=== PATIENT | male | born 1940 | race Caucasian/White ===

== ENCOUNTER → 2023-03-14 | Outpatient (CLI) | payer MEDICARE, BC ==
[~2023-03-14] MED LIST: ALBUTEROL2.5 MG/3 M IH; ASPIRIN E.C. 8181 MG; ASPIRIN E.C. 8181 MG PO; ATIVAN0.5 MG PO; ATORVASTATIN CA80 MG PO; CLOPIDOGREL PO; COLACE100 M1 PEG; COLESTID 1GM1 G PO; CORDARONE200 MG/TAB PO; DEPO-TESTOS200 MG/M1 IM; DULCOLAX5 M1 PO; ELIQUIS2.5 MG PO; EXPECTORAN100 MG/51 PEG; FAMOTIDINE20 MG PO; FERROUS SU220 MG/53 PEG; INCRUSE EL62.5 MCG/A IH; ISMO 20MG20 MG; LIDODERM1 EACH TP; LOPERAMIDE1 MG/7.51 PEG; LOPRESSOR 225 MG/TAB PEG; MEGESTROL AC40 MG/ML PEG; MEGESTROL AC40 MG/ML PO; MEGESTROL ACETA20 M1 PO; MUPIROCIN2% TP; NITROGLYCERIN0.4 M1 SL; NYSTATIN 100MU/M1 ML PO; PACERONE200 MG PO; PROTONIX40 MG/Pack PEG; REGLAN5 M1 PEG; REMERON15 MG PO; SENNA8.6 M1 PO; TYLENOL EXTRA500 M2 PO; ULTRAM50 M1 PEG; ULTRAM50 M1 PO; VENELEX OINTMEN60 GM TP; VITAMIN D325 MC1 PO; ZESTRIL2.5 M1 PO; ZOFRAN ODT4 MG PO; ZOFRAN4 M2 PO; ZOLOFT 50MG50 MG PEG; ZOLOFT 50MG50 MG PO
== END ==
LOC: RAD 09:57
DX: E04.1 Nontoxic single thyroid nodule (principal)
CPT/HCPCS: Q9967

== ENCOUNTER → 2023-03-14 | Outpatient (CLI) | payer MEDICARE | LOC: RAD 03-13 09:45 | DX: I65.22 Occlusion and stenosis of left carotid artery (principal); J43.9 Emphysema, unspecified; R22.1 Localized swelling, mass and lump, neck ==

== ENCOUNTER → 2024-03-04 | Outpatient (REF) | payer MEDICARE, BC ==
[2024-03-04 14:49] LABS: URINE WBC 0 /hpf (0-3)
[2024-03-04 15:01] LABS: BASO # 0.02 K/mm3 (0.02-0.10); EOS % 3.4 % (0.0-4.0); HEMOGLOBIN 14.4 g/dL (13.5-18.0); LYMPH# 0.86 K/mm3 (1.50-4.00); MEAN CELL VOLUME 67 fl (78-100); MEAN CORPUSCULAR HEMOGLOBIN 19 pg (27-31); MEAN CORPUSCULAR HGB CONC 28 g/dL (33-37); MONO # 0.73 K/mm3 (0.20-0.80); NEU # 6.96 K/mm3 (1.40-6.50); PLATELET COUNT 323 K/mm3 (130-400); RED CELL DISTRIBUTION WIDTH 23.7 % (11.5-14.5); WHITE BLOOD COUNT 8.9 K/mm3 (4.8-10.8)
[2024-03-04 15:04] LABS: RED BLOOD COUNT 7.57 M/mm3 (4.20-5.60)
[2024-03-04 15:08] LABS: PH-URINE 5.5 (5.0 - 8.0); URINE APPEARANCE CLEAR (CLEAR); URINE BILIRUBIN NEGATIVE (NEGATIVE); URINE BLOOD NEGATIVE (NEGATIVE); URINE COLOR YELLOW (YELLOW); URINE GLUCOSE NEGATIVE (NEGATIVE); URINE KETONE NEGATIVE (NEGATIVE); URINE LEUKOCYTE ESTERASE NEGATIVE (NEGATIVE); URINE NITRATE NEGATIVE (NEGATIVE); URINE PROTEIN(semi-quant) NEGATIVE (NEGATIVE)
[2024-03-04 15:09] LABS: URINE MUCUS PRESENT (NOT PRESENT)
[2024-03-04 15:12] LABS: ALBUMIN 3.6 g/dL (3.4-4.8)
[2024-03-04 15:14] LABS: CALCIUM 9.3 mg/dL (8.3-10.5)
[2024-03-04 15:15] LABS: TOTAL PROTEIN 6.2 g/dL (6.2-8.1)
[2024-03-04 15:17] LABS: TOTAL BILIRUBIN 0.6 mg/dL (0.2-1.2)
== END ==
LOC: LAB 14:43
PROVIDERS: Family Medicine
DX: Z01.89 Encounter for other specified special examinations (principal)

== ENCOUNTER → 2024-03-23 | Emergency (ER) | payer MEDICARE, BC ==
[~2024-03-23] VITALS: Wt 49.7 kg
[~2024-03-23] MED LIST changes: +MELATIN 3 MG-11 TAB PO; +PREDNISONE20 M1 PO; +[UNRECOGNIZED DRUG - OTHER] PO
[2024-03-23 15:57] LABS: HEMATOCRIT 48.4 % (42.0-52.0); HEMOGLOBIN 13.4 g/dL (13.5-18.0); MEAN CELL VOLUME 69 fl (78-100); MEAN CORPUSCULAR HEMOGLOBIN 19 pg (27-31); MEAN CORPUSCULAR HGB CONC 28 g/dL (33-37); MEAN PLATELET VOLUME 9.3 fl (7.4-10.4); PLATELET COUNT 380 K/mm3 (130-400); RED BLOOD COUNT 7.06 M/mm3 (4.20-5.60); RED CELL DISTRIBUTION WIDTH 24.3 % (11.5-14.5); WHITE BLOOD COUNT 10.4 K/mm3 (4.8-10.8)
[2024-03-23 16:03] LABS: ALBUMIN 3.3 g/dL (3.4-4.8)
[2024-03-23 16:04] LABS: CALCIUM 8.8 mg/dL (8.3-10.5)
[2024-03-23 16:05] LABS: TOTAL PROTEIN 6.2 g/dL (6.2-8.1)
[2024-03-23 16:07] LABS: TOTAL BILIRUBIN 0.6 mg/dL (0.2-1.2)
[2024-03-23 16:12] LABS: PROTHROMBIN TIME 10.7 SECONDS (9.0-12.0)
[2024-03-23 16:21] LABS: HYPOCHROMIA 2+; LYMPHOCYTE 3 % (20-51); MICROCYTOSIS 2+; MONOCYTE 4 % (3-10); NEUTROPHILS 93 % (42-75); OVALOCYTES 1+
[2024-03-23 17:50] VITALS: BP 116/84
== END ==
LOC: ED 15:25
PROVIDERS: Physician Assistant
DX: R04.0 Epistaxis (principal); Z95.1 Presence of aortocoronary bypass graft

== ENCOUNTER 2024-03-29 10:31 | Inpatient (IN) | payer MEDICARE, BC ==
[~2024-03-29] VITALS: Ht 165.1 cm; Wt 50.8 kg
[2024-03-29] MEDS ORDERED: Docusate Sodium 100 MG CAP PO PRN (15:15)
[2024-03-29] MEDS ORDERED: Polyethylene Glycol 3350 Powder 17 GM PACKET PO PRN (15:15)
[2024-03-29] MEDS ORDERED: Acetaminophen 325 MG TAB PO PRN (15:15)
[2024-03-29] MEDS ORDERED: ATORVASTATIN CA40 MG PO (15:27)
[2024-03-29] MEDS ORDERED: CLOPIDOGREL75 M2 PO (15:27)
[2024-03-29] MEDS ORDERED: AMOXICILLIN AND1 TA2 PO (15:27)
[2024-03-29] MEDS ORDERED: BREZTRI AEROS10.7 GM IH (15:29)
[2024-03-29] MEDS ORDERED: Testosterone Cyp in Oil 200 MG/ML 1 ML VIAL IM SCH (15:30)
--- NOTE | 2024-03-29 17:07 | NUR ---
PATIENT ARRIVE FROM [facility] IN [place], [place] FOR SWING BED. HE WAS ASSISTED INTO HIS ROOM VIA WHEELCHAIR. HE DENIES PAIN WHEN ASKED. HE UTILIZES AN OXYGEN MASK SINCE HE JUST HAD HUEY ROCKET REMOVED FROM HIS LEFT NOSTRIL A COUPLE DAYS AGO. HE IS HERE DUE TO WEAKNESS. HIS PLAN IS TO RETURN TO [facility]. 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 AREA VISUALIZED AND WOUND CARE NURSE AND THIS NURSE AGREED REDDENED AND AREA WAS BLANCHABLE. HIS UPPER EXTREMITIES AND ABDOMEN HAD NOTICABLE BRUSING DUE TO LOVENOX INJECTIONS AND BLOOD DRAWS. PATIENT STATED THAT HE COUGHED UP A VERY SMALL AMOUNT OF DARK RED BLOOD LAST NIGHT. NO COUGH TODAY PER PATIENT. AFTER ADMISSION PATIENT TOOK A SHORT NAP BEFORE SUPPER. NURSE FROM [facility] BROUGHT OVER PATIENT'S DENTURES, SOME CLOTHING AND ELECTRIC RAZOR. PATIENT IS CURRENTLY EATING SUPPER AT THIS TIME.
[2024-03-29] MEDS ORDERED: PSYLLIUM PO SCH (19:00)
--- NOTE | 2024-03-29 19:00 | NUR ---
Report received from Fiorella KOHLER. Patient rests supine in bed, awake with oxygen in place at 5L per simple mask. A/O x4. Denies pain. SOA noted with talking as removes mask to converse with nurse. Not normally on oxygen at home. States coughs some but today NPC as last night coughed up a bit of bloody sputum. Assessment completed. Reviewed medications and POC. Patient asks about different staff members he had take care of him back when he was a patient in 2019. Bed alarm on. Call light in reach.
[2024-03-29 19:38] VITALS: BP 121/72
[2024-03-29] MEDS ORDERED: Famotidine 20 MG TAB PO SCH (21:00)
[2024-03-29] MEDS ORDERED: Amoxicillin/Clavulanate K+ 875/125 MG TAB PO SCH (21:00)
[2024-03-29] MEDS ORDERED: Atorvastatin 80 MG TAB PO SCH (21:00)
[2024-03-29] MEDS ORDERED: Metoprolol Tartrate 25 MG TAB PO SCH (21:00)
--- NOTE | 2024-03-30 06:00 | NUR ---
Rests well in bed on L side. Oxygen in place at 5L SM. Awakened for AM medication. Denies pain or needs.
--- NOTE | 2024-03-30 06:55 | NUR ---
Report to Fiorella KOHLER.
[2024-03-30 07:09] LABS: BASO # 0.04 K/mm3 (0.02-0.10); EOS # 0.25 K/mm3 (0.04-0.40); EOS % 3.4 % (0.0-4.0); HEMATOCRIT 34.7 % (42.0-52.0); HEMOGLOBIN 9.6 g/dL (13.5-18.0); MEAN CELL VOLUME 71 fl (78-100); MEAN CORPUSCULAR HEMOGLOBIN 20 pg (27-31); MEAN CORPUSCULAR HGB CONC 28 g/dL (33-37); MEAN PLATELET VOLUME 9.3 fl (7.4-10.4); MONO # 0.92 K/mm3 (0.20-0.80); PLATELET COUNT 461 K/mm3 (130-400); RED CELL DISTRIBUTION WIDTH 23.2 % (11.5-14.5); WHITE BLOOD COUNT 7.4 K/mm3 (4.8-10.8)
[2024-03-30 07:18] LABS: CALCIUM 8.3 mg/dL (8.3-10.5)
[2024-03-30 07:19] LABS: TOTAL PROTEIN 5.6 g/dL (6.2-8.1)
[2024-03-30 07:21] LABS: TOTAL BILIRUBIN 0.3 mg/dL (0.2-1.2)
[2024-03-30 07:22] VITALS: BP 132/74
[2024-03-30] MEDS ORDERED: Amoxicillin/Clavulanate K+ 875/125 MG TAB PO SCH (08:00)
[2024-03-30] MEDS ORDERED: Cholecalciferol (Vit D3) 25 MCG (1,000 Units) TAB PO SCH (09:00)
[2024-03-30] MEDS ORDERED: Melatonin 3 MG TAB PO SCH ×2 (09:00→21:00)
[2024-03-30] MEDS ORDERED: Sertraline 50 MG TAB PO SCH (09:00)
[2024-03-30] MEDS ORDERED: Clopidogrel 75 MG TAB PO SCH (09:00)
[2024-03-30] MEDS ORDERED: PSYLLIUM PO PRN (17:30)
[2024-03-30 19:47] VITALS: BP 121/74
--- NOTE | 2024-03-30 20:49 | NUR ---
PT A&OX4. AMBULATES WITH GAITBELT, WALKER AND X1 ASSIST. LUNGS CLEAR. ABD SOFT AND NON-TENDER. PT REMAINS ON 3L/NC. DENIES PAIN.
[2024-03-31 07:13] LABS: BASO # 0.03 K/mm3 (0.02-0.10); EOS # 0.19 K/mm3 (0.04-0.40); EOS % 2.5 % (0.0-4.0); HEMATOCRIT 34.1 % (42.0-52.0); HEMOGLOBIN 9.5 g/dL (13.5-18.0); LYMPH# 0.99 K/mm3 (1.50-4.00); MEAN CELL VOLUME 71 fl (78-100); MEAN CORPUSCULAR HEMOGLOBIN 20 pg (27-31); MEAN CORPUSCULAR HGB CONC 28 g/dL (33-37); MEAN PLATELET VOLUME 9.3 fl (7.4-10.4); MONO # 0.88 K/mm3 (0.20-0.80); NEU # 5.35 K/mm3 (1.40-6.50); PLATELET COUNT 438 K/mm3 (130-400); RED CELL DISTRIBUTION WIDTH 23.1 % (11.5-14.5); WHITE BLOOD COUNT 7.5 K/mm3 (4.8-10.8)
[2024-03-31 07:19] LABS: CALCIUM 8.5 mg/dL (8.3-10.5)
[2024-03-31 07:21] LABS: TOTAL PROTEIN 5.7 g/dL (6.2-8.1)
[2024-03-31 07:22] LABS: TOTAL BILIRUBIN 0.3 mg/dL (0.2-1.2)
[2024-03-31 07:27] VITALS: BP 118/75
--- NOTE | 2024-03-31 18:26 | NUR ---
0797 This nurse assisted pt to restroom, pt ambulated with minimal assistance. This nurse remained in room until pt finished. Pt then sat down in his recliner. Pt had a swing bed meeting today. Team discussed pts goals for discharge planning. Nursing staff will monitor O2 sats and help to titrate pt off of supplemental O2 via NC. Overnight pt used face mask at 5 lpm, 99% O2. In the am pt switched to 3 lpm via NC. Pt tolerated this well with O2 resulting 99%. After lunch this nurse reduced pts O2 lpm to 2.5. Pt is tolerating well pt O2% resulting in 99%. Pts baseline is room air. Pt reports having an irritation on the front lower gum line. This results in discomfort while eating. Speech therapy to consult. Pt has a mepilex on his sacrum.
[2024-03-31 19:10] VITALS: BP 114/69
[2024-04-01 07:11] VITALS: BP 110/68
--- NOTE | 2024-04-01 08:12 | NUR ---
DR. SANTACRUZ NOTIFIED OF PATIENT SBP OF 110. HE GAVE ME A VERBAL ORDER TO HOLD METOPROLOL FOR SBP OF LESS THAN 120 OR HR OF LESS THAN 70. METOPROLOL HELD, PATIENT EDUCATED AND VERBALIZED UNDERSTANDING. METOPROLOL UPDATED. MEDICATIONS TAKEN WITHOUT DIFFICULTY. PATIENT ALERT AND ORIENTED AND LAYING IN BED. PATIENT REFUSED TO GET OUT OF BED AT THIS TIME, STATES THAT HE PREFERS TO CONTINUE SLEEPING. PATIENT LEFT UPRIGHT IN BED. BED ALARM ON AND FALL RISK WRISTBAND IN PLACE. PATIENT DENIES ANY NEEDS.
[2024-04-01 19:56] VITALS: BP 118/69
--- NOTE | 2024-04-02 07:00 | NUR ---
REPORT RECEIVED FROM EDITA REAL
[2024-04-02 07:22] VITALS: BP 118/74
--- NOTE | 2024-04-02 07:50 | NUR ---
PATIENT LYING IN BED WITH EYES CLOSED. AROUSABLE TO VOICE. PATIENT STATES RESTED "OK" THROUGHOUT THE NIGHT. PATIENT REQUESTS TO "GO BACK TO SLEEP" AT THIS TIME, OFFERS NO OTHER NEEDS OR COMPLAINTS AT THIS TIME. BED ALARM ON, CALL LIGHT WITHIN REACH.
--- NOTE | 2024-04-02 09:36 | NUR ---
PATIENT SITTING UP ON SIDE OF BED. PATIENT IS A&Ox4, DENIES PAIN AT THIS TIME. ASSESSMENT COMPLETE. PATIENT DENIES OTHER NEEDS OR COMPLAINTS AT THIS TIME. BED ALARM ON, CALL LIGHT WITHIN REACH.
--- NOTE | 2024-04-02 15:55 | NUR ---
PATIENT SITTING UP IN BED, VISITOR AT BEDSIDE. PATIENT DENIES NEEDS OR COMPLAINTS AT THIS TIME. BED ALARM ON, CALL LIGHT WITHIN REACH.
[2024-04-02 19:00] VITALS: BP 129/77
--- NOTE | 2024-04-02 19:00 | NUR ---
REPORT GIVEN TO DAVE REESE BY EDITA GRADY
--- NOTE | 2024-04-02 19:52 | NUR ---
Report received from Bowen RN. Patient resting supine in bed with eyes closed. Awakens easily for assessment. A/O x4. Denies pain. Oxygen in place at 1.5 L/NC. SAO2 95%. No signs of respiratory distress. Assessment completed. Requests and given cranberry juice. Bed alarm on. Call light in reach.
--- NOTE | 2024-04-02 23:15 | NUR ---
SAO2 spot check 95-96% on 1.5 L/NC.
--- NOTE | 2024-04-03 03:36 | NUR ---
Up to BR with assist to void. Assisted back to bed. No dizziness noted. Mild SOA, states "it's getting better". Denies pain or needs at this time. Bed alarm on. Call light in reach.
--- NOTE | 2024-04-03 07:01 | NUR ---
Report to Scarlett KOHLER.
[2024-04-03 08:45] VITALS: BP 143/87
--- NOTE | 2024-04-03 14:13 | NUR ---
PT DENIES ANY PAIN. PT EATS MINIMALLY. THIS NURSE ASSESSED PT, LUNGS ARE CLEAR. PT REPORTS HE HAD A BM LAST EVENING, AND HE SLEPT WELL. PT HAS NO CONCERNS.
[2024-04-03 19:00] VITALS: BP 114/66
--- NOTE | 2024-04-03 20:35 | NUR ---
Pt laying in bed watching TV when nurse enters room. Pt denies pain when asked. He takes medication without any difficulties. Pt reports having a slow day with not much excitment. All needs meet when nurse in room, pt denies any other needs. Call light in reach of pt when nurse leaves room.
[2024-04-04 07:00] VITALS: BP 113/62
--- NOTE | 2024-04-04 07:19 | NUR ---
REPORT FROM VICKI KOHLER
--- NOTE | 2024-04-04 10:30 | NUR ---
PT ASLEEP IN BED UPON ENTRY, PT AWAKEN EASILY. NO PAIN REPORTED AND PT IS ALERT AND ORIENTED X4, PT ASSESSED AND MEDICATIONS GIVEN BY CONCHITA RN. MEPILEX IN PLACE ON SACRAL WOUND, THIS NURSE TO CHANGE DRESSING ON PTS NEXT TRIP TO THE BATHROOM. PT DENIES ANY NEEDS JUST REPORTS BEING TIRED, PT NOW LAYING IN BED WITH CALL LIGHT IN REACH AND BED ALARM ON
--- NOTE | 2024-04-04 12:11 | NUR ---
PT ASSISTED TO THE RESTROOM BY EVERETTE MAYFIELD
--- NOTE | 2024-04-04 14:30 | NUR ---
PT SLEEPING WELL
--- NOTE | 2024-04-04 18:56 | NUR ---
REPORT TO VICKI KOHLER
--- NOTE | 2024-04-04 18:56 | NUR ---
Report received from Chetan KOHLER
[2024-04-04 19:00] VITALS: BP 114/69
--- NOTE | 2024-04-04 19:33 | NUR ---
Pt laying in bed watching TV lala nurse enteres room. Pt denies pain when asked but does state that he would like some Tylenol with his HS meds. Pt is alert and oriented x4. Pt asked to have assit to the bathroom. Meplix is in place. Pt is assisted to the bathroom but refuses to wear his O2, starting he needs a break form wearing his O2. Comng back from the bathroom the pt is very short of breath. Suggested that the pt should wear his O2 when going to the bathroom the states " it really doesnt make a differeance if I wear it or not, it just takes so much to get there and back." O2 placed back on pt @ 1.5L per NC. Pt is assited back into bed and made comfortable. Alll needs meeet before leaving the room. Call light in reach of pt.
--- NOTE | 2024-04-05 06:17 | NUR ---
Pt has slept through the night. Denies any needs when nurse in room. Bed alarms for safety, call light in reach of pt.
--- NOTE | 2024-04-05 06:53 | NUR ---
REport given to Edison Vazquez RN
[2024-04-05 07:00] VITALS: BP 107/66
--- NOTE | 2024-04-05 08:35 | NUR ---
PT ALERT AND ORIENTED X4, PT ASSISTED FROM RESTROOM TO CHAIR BY CYDNEY MAYFIELD. PT DENIES PAIN THIS MORNING, MEPILEX ON SACRUM REMOVED AND SKIN INSPECTED, NO OPEN AREAS NOTED, VERY LITTLE REDDNESS NOTED WELL. PT ASSESSED WITHOUT COMPLICATION, PT RESTING IN CHAIR WITH CALL LIGHT IN REACH EATING BREAKFAST, PT DENIES FURHTER NEEDS AT THIS TIME.
--- NOTE | 2024-04-05 11:46 | NUR ---
PT SLEEPING IN CHAIR WITH LEGS UP, CHAIR ALARM ON
--- NOTE | 2024-04-05 16:24 | NUR ---
PT SLEEPING WELL
--- NOTE | 2024-04-05 18:51 | NUR ---
REPORT TO MARY ANN ACOSTA
[2024-04-05 19:30] VITALS: BP 122/74
--- NOTE | 2024-04-05 20:20 | NUR ---
Report received from German KOHLER. Patient resting supine in bed watching TV. A/O x4. Oxygen in place a 1.5L/NC. Denies pain. States SOA "no worse then anyother time.". Denies cough. States he had some blood in his urine today but denies pain, burning or difficulty urinating. Advised to report if this happens again. PO fluids encourgaged. HS medications taken whole without difficulty. Assessment completed. Bed alrm on. Call light in reach. Denies quetions, wants or needs.
--- NOTE | 2024-04-05 23:33 | NUR ---
Perez Oden notified of blood tinged urine, order for UA. RESEARCH AND EVALUATION MANAGER's notified.
--- NOTE | 2024-04-06 01:38 | NUR ---
Clean catch UA obtained and taken to the lab by Cecil Espinal CNA
[2024-04-06 03:23] LABS: PH-URINE 5.5 (5.0 - 8.0); URINE APPEARANCE CLEAR (CLEAR); URINE BILIRUBIN NEGATIVE (NEGATIVE); URINE BLOOD NEGATIVE (NEGATIVE); URINE COLOR YELLOW (YELLOW); URINE GLUCOSE NEGATIVE (NEGATIVE); URINE KETONE NEGATIVE (NEGATIVE); URINE LEUKOCYTE ESTERASE NEGATIVE (NEGATIVE); URINE NITRATE NEGATIVE (NEGATIVE); URINE PROTEIN(semi-quant) NEGATIVE (NEGATIVE)
[2024-04-06 03:30] LABS: URINE WBC 0-1 /hpf (0-3)
--- NOTE | 2024-04-06 04:13 | NUR ---
No blood or bacteria noted in UA. No visible blood at the time UA collection.
--- NOTE | 2024-04-06 05:05 | NUR ---
Awakened for AM medication. Resting well this shift. Up to BR PRN. Denies pain or needs at this time.
--- NOTE | 2024-04-06 06:53 | NUR ---
Report to Lvaonne KOHLER.
[2024-04-06 07:00] VITALS: BP 121/77
--- NOTE | 2024-04-06 08:00 | NUR ---
PT IS SITTING IN RECLINER AND WAITING FOR BREAKFAST. CALL LIGHT WITHIN REACH
--- NOTE | 2024-04-06 10:23 | NUR ---
PT. UP IN CHAIR, HAS BEEN IN THERAPY GYM THIS AM AFTER BREAKFAST. DENIES ANY NEEDS OR CONCERNS.
[2024-04-06 11:36] VITALS: BP 109/66
--- NOTE | 2024-04-06 18:09 | NUR ---
PT. WORKED WELL WITH THERAPY TODAY. NO CHANGES IN CONDITION [id number] THE SHIFT. DENIES ANY NEEDS OR CONCERNS.
--- NOTE | 2024-04-06 19:14 | NUR ---
Report received from Lavonne KOHLER. Patient rests supine in bed watching TV. Oxygen in place at 1.5L/NC. Turned down to 1L at this time. A/O x4. Denies pain. States he had a "rough day", had a shower and "wore him out". Denies any further blood tinged urine. Assessment completed. Denies wants or needs. Bed alarm on. Call light in reach.
[2024-04-06 20:50] VITALS: BP 148/69
--- NOTE | 2024-04-06 22:07 | NUR ---
Up to BR. Oxygen in place at 1L/NC. Oxygen check when coming back from BR. SOA with exertion. SAO2 81% on 1L. Oxygen increased to 2L/NC. Reports some dizziness with position change.
--- NOTE | 2024-04-07 05:49 | NUR ---
Awakened by lab for AM lab draw. Up to BR with oxygen in place at 2L/NC. GAMBOA. States he does not feel any more SOA then before with exertion but that yesterday at theraphy wore him out. "I think I need a day of rest". States he has been downstairs for exercise before but "this is the first time I walked to and from, they usually take a chair and its much easier. Sits on EOB a few minutes to catch his breath then gets back into bed independently. AM medication taken. Denies wants or needs at this time. Bed alarm on. Call light in reach.
[2024-04-07 05:59] LABS: BASO # 0.03 K/mm3 (0.02-0.10); EOS # 0.25 K/mm3 (0.04-0.40); EOS % 3.8 % (0.0-4.0); HEMATOCRIT 35.2 % (42.0-52.0); HEMOGLOBIN 9.8 g/dL (13.5-18.0); LYMPH# 1.03 K/mm3 (1.50-4.00); MEAN CELL VOLUME 70 fl (78-100); MEAN CORPUSCULAR HEMOGLOBIN 20 pg (27-31); MEAN CORPUSCULAR HGB CONC 28 g/dL (33-37); MEAN PLATELET VOLUME 9.7 fl (7.4-10.4); MONO # 0.83 K/mm3 (0.20-0.80); NEU # 4.43 K/mm3 (1.40-6.50); PLATELET COUNT 365 K/mm3 (130-400); RED CELL DISTRIBUTION WIDTH 22.1 % (11.5-14.5); WHITE BLOOD COUNT 6.6 K/mm3 (4.8-10.8)
[2024-04-07 06:27] LABS: ALBUMIN 3.3 g/dL (3.4-4.8)
[2024-04-07 06:29] LABS: CALCIUM 8.9 mg/dL (8.3-10.5)
[2024-04-07 06:30] LABS: TOTAL PROTEIN 6.6 g/dL (6.2-8.1)
[2024-04-07 06:32] LABS: TOTAL BILIRUBIN 0.3 mg/dL (0.2-1.2)
--- NOTE | 2024-04-07 06:54 | NUR ---
Report to Ninfa Boothe RN
--- NOTE | 2024-04-07 07:00 | NUR ---
RESUMED CARE FROM DAVE REESE.
[2024-04-07 07:41] VITALS: BP 109/70
--- NOTE | 2024-04-07 08:00 | NUR ---
PATIENT RESTING QUIETLY IN BED ON HIS RIGHT SIDE...WILL AWAKEN WITH BREAKFAST AND ASSIST TO CHAIR FOR MEAL.
--- NOTE | 2024-04-07 09:44 | NUR ---
PATIENT ASSISTED BACK TO BED...PATIENT'S O2 SAT CHECKED AND WAS 85% AND O2 PER NC INCREASED TO 3L PER NC WHEN RETURNED TO BED. HOB ELEVATED FOR COMFORT. PATIENT STATED THAT "DURING THE NIGHT" HE FELT MAYBE A TIGHTNESS ACROSS HIS UPPER CHEST BUT DENIED THAT IT WAS "PAIN". PATIENT TEACHING DONE THAT IF THIS TYPE OF CHEST TIGHTNESS/SENSATION RETURNS TO BE SURE AND CALL HIS NURSE SO HE CAN BE EVALUATED. VOICED UNDERSTANDING.
[2024-04-07 19:00] VITALS: BP 135/72
--- NOTE | 2024-04-07 19:02 | NUR ---
REPORT TO EDITA PRINGLE.
[2024-04-08 07:00] VITALS: BP 126/72
--- NOTE | 2024-04-08 09:57 | NUR ---
PATIENT WITHOUT C/O THIS AM...."JUST ALWAYS COLD". PATIENT INSTRUCTED TO CALL WITH NEEDS.
--- NOTE | 2024-04-08 18:40 | NUR ---
REPORT GIVEN TO BRETT Degroot LPN
[2024-04-08 19:30] VITALS: BP 132/82
--- NOTE | 2024-04-08 20:30 | NUR ---
Report received from Maria Teresa KOHLER. Patient rests in bed on L side with eyes closed. Awakens easily to verbal stimuli. Oxygen in place at 1L/NC. SAO2 92%. States he is "always short of air" when asked. Denies cough. States feels better then last time this nurse took care of him. "I needed that half a day of rest". HS medications taken whole without difficulty. Has canker sore lower gum line that states is bothering him when dentures are in. Denies other wants or needs at this time.
--- NOTE | 2024-04-08 21:10 | NUR ---
Dr. Reza notified of bertram reddy.
--- NOTE | 2024-04-09 03:29 | NUR ---
Requests Tylenol for a H/A, behind his eyes. Rates 05/03.
--- NOTE | 2024-04-09 04:08 | NUR ---
Remains awake, reports some relief with Tylenol. Offered and refused ice bag. "let's just give the Tylenol some time to work."
--- NOTE | 2024-04-09 06:52 | NUR ---
Report to Lavonne KOHLER.
[2024-04-09 07:30] VITALS: BP 112/71
--- NOTE | 2024-04-09 09:19 | NUR ---
PT. UP IN CHAIR, ATE WELL FOR BREAKFAST. DENIES ANY NEEDS OR CONCERNS.
--- NOTE | 2024-04-09 18:28 | NUR ---
NO CHANGES IN PT. CONDITION THROUGHOUT THE DAY. DENIES ANY NEEDS OR CONCERNS.
[2024-04-09 19:20] VITALS: BP 128/74
--- NOTE | 2024-04-09 19:20 | NUR ---
Report received from Lavonne KOHLER. Patient rests in bed with oxygen in place at 1L/NC. A/O x4. Denies pain, Denies SOA at rest but does have significant SOA with exertion to and from BR. Lungs CTA, HRR. No edema noted. Tassel Making Machine Operator equal. Denies questions, wants or needs at this time. Bed alarm on. Call light in reach.
--- NOTE | 2024-04-10 05:47 | NUR ---
Rested well. Up to BR this AM and back to bed. Did not have the increased SOA as he did last night. AM medication taken. Remains on oxygen at 1L/NC.
--- NOTE | 2024-04-10 06:44 | NUR ---
Report to Lavonne KOHLER.
[2024-04-10 07:05] VITALS: BP 125/69
--- NOTE | 2024-04-10 07:57 | NUR ---
PT. RESTING IN BED AT THIS TIME. STATES HE WOULD LIKE TO STAY IN BED FOR BREAKFAST. DENIES ANY NEEDS OR CONCERNS.
--- NOTE | 2024-04-10 18:55 | NUR ---
VISITED WITH FRIEND TODAY. NO CHANGES IN PT. CONDITION THROUGHOUT THE DAY.
[2024-04-10 19:00] VITALS: BP 119/74
--- NOTE | 2024-04-10 19:30 | NUR ---
Report received from Lavonne KOHLER. Patient rests in bed on R side. Awake. Oriented x4. Denies pain. Continues to have intermittent increased SOA with exertion. Oxygen in place at 1L/NC. Occasional cough. States had BM today, denies problems with urination. Assessment completed. Requests and given ice cream for HS snack. Call for assist to BR PRN. 1 assist with walker. Denies questions, wants or needs at this time. Bed alarm on. Call light in reach.
--- NOTE | 2024-04-10 20:15 | NUR ---
HS medications taken whole without difficulty. Lopressor held due to B/P 119/74. Orders to hold for < 120.
--- NOTE | 2024-04-11 05:23 | NUR ---
Rested well through the nignt. Up to BR x1. AM medication taken. Denies wants or needs.
--- NOTE | 2024-04-11 06:45 | NUR ---
REPORT RCV'D FROM MARY ANN Degroot
[2024-04-11 07:00] VITALS: BP 120/77
--- NOTE | 2024-04-11 07:03 | NUR ---
Report to Maria Teresa KOHLER.
--- NOTE | 2024-04-11 13:23 | NUR ---
PATIENT VERY TALKATIVE TODAY AND WIHTOUT C/O. SMILES WHEN TALKING. 02 ON 1L PER NC. PATIENT DENIES SHORTNESS OF BREATH OR C/O PAIN. SPENT MOST AM UP IN CHAIR AND CHAIR FOR MEALS. PATIENT TEACHING O2 FLOW RATE AND TO CALL WITH NEEDS OR CONCERNS.
--- NOTE | 2024-04-11 16:16 | NUR ---
O2 PER NC IS AT 05-1L PER NC. O2 SAT AT 93%. DISCUSSION WITH PATIENT THAT HE WOULD LIKE TO TRY 02 OFF AT THIS TIME AND RE-CHECK SAT PRN. C/O NOSE DRY AND NEEDING ALSO TO BLOW NOSE. PATIENT DENIES SOB, COLOR PINK, AND REPIRATIONS REGULAR AND NON LABORED.
--- NOTE | 2024-04-11 17:24 | NUR ---
PATIENT SITTING ON SIDE OF BED FOR MEAL. COLOR PINK..O2 OFF AND O2 SAT 93%. PATIENT TEACHING DONE AND WILL CONTINUE TO LEAVE O2 OFF.
--- NOTE | 2024-04-11 18:45 | NUR ---
REPORT GIVEN TO MARY ANN ACOSTA
[2024-04-11 19:20] VITALS: BP 127/71
--- NOTE | 2024-04-11 20:44 | NUR ---
Report received from Paulo KOHLER. Patient on RA during V/S, SAO2 88-89%. at rest in bed. Oxygen applied at 1L/NC and increases to 92%. Rests in bed at this time, watching Nascar. A/O x4. Winded with talking. Lungs CTA, diminished in bases. HRR. Denies pain. Assessment completed. and HS medications taken whole without difficulty. Denies questions, wants or needs. Bed alarm on. Call light in reach.
--- NOTE | 2024-04-12 04:05 | NUR ---
Ambulated to and from with Oxygen in place at 1L/NC. SAO2 96%
[2024-04-12 07:00] VITALS: BP 121/75
--- NOTE | 2024-04-12 07:19 | NUR ---
Report to Fiorella KOHLER.
--- NOTE | 2024-04-12 18:56 | NUR ---
PATIENT ALERT AND ORIENTED X4. HE HAS BEEN PLEASENT AND COOPERATIVE WITH CARE. HE HAS WORKED WELL WITH THERAPY. HE DENIES PAIN WHEN ASKED. HE CONTINUES THE USE OF O2.
[2024-04-12 19:00] VITALS: BP 137/79
--- NOTE | 2024-04-12 20:50 | NUR ---
Report received from Fiorella KOHLER. Patient rests supine in bed watching a western on TV. A/O x4. Oxygen in place at 1L/NC. Respirations some labored per his norm. Respiratory effort increases with activity on an intermittent bases. Denies cough. Denies pain. Lungs are CTA. HRR. No LE edema noted. Up to BR with 1:1 assist and walker. Gait steady, fatigues easily with short distance exertion. Uses call light to make needs known. HS medications taken whole without difficulty. Bed alrm on, call light in reach.
--- NOTE | 2024-04-13 03:29 | NUR ---
Up to BR and assisted back to bed. Oxygen in place per N/C. Sits on EOB to catch his breath, then positions self back in bed. Denies pain or needs. Bed alarm on. Call light in reach.
--- NOTE | 2024-04-13 05:54 | NUR ---
Rested well all night. Up to BR PRN. AM medication taken without difficulty.
--- NOTE | 2024-04-13 06:57 | NUR ---
Report to Aure KOHLER.
[2024-04-13 07:10] VITALS: BP 144/80
--- NOTE | 2024-04-13 17:49 | NUR ---
PT BECOMES WINDED WHILE WALKING TO THE RESTROOM. PT IS USING 1 LPM VIA NC. PT RECOVERS ONCE SITTING DOWN. LABS SCHEDULED IN THE MORNING.
[2024-04-13 19:30] VITALS: BP 146/78
--- NOTE | 2024-04-13 20:32 | NUR ---
Report received from Aure KOHLER. Patient resting supine in bed watching TV. Oxygen in place at 1L/NC. A/O x4. Denies pain. SOA with exertion. Lungs CTA. Occasional NPC. No edema. HS medications taken PO whole without difficulty. Uses call light for 1:1 assist to BR with gaitbelt and walker. Bed alarm on, call light in reach.
[2024-04-14 06:02] LABS: ALBUMIN 3.2 g/dL (3.4-4.8)
[2024-04-14 06:03] LABS: CALCIUM 8.8 mg/dL (8.3-10.5)
[2024-04-14 06:04] LABS: TOTAL PROTEIN 6.5 g/dL (6.2-8.1)
[2024-04-14 06:06] LABS: TOTAL BILIRUBIN 0.2 mg/dL (0.2-1.2)
--- NOTE | 2024-04-14 06:55 | NUR ---
Report to Aure KOHLER.
[2024-04-14 07:30] LABS: BASO # 0.02 K/mm3 (0.02-0.10); EOS # 0.54 K/mm3 (0.04-0.40); EOS % 8.4 % (0.0-4.0); HEMATOCRIT 34.5 % (42.0-52.0); HEMOGLOBIN 9.7 g/dL (13.5-18.0); MEAN CELL VOLUME 70 fl (78-100); MEAN CORPUSCULAR HEMOGLOBIN 20 pg (27-31); MEAN CORPUSCULAR HGB CONC 28 g/dL (33-37); MEAN PLATELET VOLUME 9.6 fl (7.4-10.4); MONO # 0.85 K/mm3 (0.20-0.80); NEU # 4.11 K/mm3 (1.40-6.50); PLATELET COUNT 381 K/mm3 (130-400); RED BLOOD COUNT 4.92 M/mm3 (4.20-5.60); RED CELL DISTRIBUTION WIDTH 21.6 % (11.5-14.5); WHITE BLOOD COUNT 6.4 K/mm3 (4.8-10.8)
[2024-04-14 07:41] VITALS: BP 129/81
--- NOTE | 2024-04-14 08:41 | NUR ---
THIS NURSE AND PCT EVERETTE ASSITED PT TO RESTROOM AND DELIVERED MEAL, PT DECLINED BRUSHING HIS TEETH, SITTING UP IN THE RECLINER OR TO WATCH TV. PT REPORTS FEELING EXTREMELY TIRED. THIS NURSE ASKED PT IF HE WISHES TO GO TO SLEEP AND NOT WAKE UP, PT REPLIED NO. NURSE ASKED IF HE IS FEELING DOWN OR HOPELESS, PT REPLIED NO. PT WENT ON TO ASSURE THIS NURSE HE IS JUST PLAIN TIRED AND WANTS TO REST. PT IS STILL PLANNING TO PARTICIPATE IN THERAPIES. PT IS USING 2 LPM VIA NC PT IS SATTING 95%.
[2024-04-14 19:00] VITALS: BP 111/77
--- NOTE | 2024-04-14 20:15 | NUR ---
Report received at shift change from Aure KOHLER. Patient rests supine in bed watching TV. A/O x4. Oxygen in place at 0.5 L/NC. Denies pain. Has chronic SOA with increased SOA with short exertion to BR and back. Currently respirations even and non-labored. Initial denies pain , then asked for Tylenol for H/A /10 and to help him rest.Denies problems with B&B. Assessment completed. HS medications taken whole without difficulty. PRN Tylenol taken. Bed alarm on. Call light in reach.
--- NOTE | 2024-04-15 02:10 | NUR ---
Resting on L side with eyes closed. Respirations even and non-labored. No signs of pain or distress. Bed alarm on, call light in reach.
--- NOTE | 2024-04-15 04:02 | NUR ---
Rests quietly with eyes closed. No signs of pain or distress. Respirations even and non-labored. Oxygen in place at 0.5L/NC.
--- NOTE | 2024-04-15 04:32 | NUR ---
Up to BR with SBA and walker. Increased work of breathing ambulating to and from BR. SAO2 90-91% on 1L. Checked while sitting after coming back from BR.
[2024-04-15 07:00] VITALS: BP 113/70
--- NOTE | 2024-04-15 07:22 | NUR ---
Report to Em KOHLER.
[2024-04-15 09:27] VITALS: BP 112/73
--- NOTE | 2024-04-15 09:30 | NUR ---
Patient alert and oriented. Oxygen at 1 liter via nasal cannula. Denies needs or questions.
--- NOTE | 2024-04-15 17:54 | NUR ---
Report received from Em KOHLER. Patient ambulating back from BR and sits on EOB to finish supper. Winded with exertion. Oxygen in place. Denies wants or needs.
--- NOTE | 2024-04-15 18:25 | NUR ---
Assessment completed. Oxygen in place at 1.5L/NC. Denies pain. Lungs CTA but diminished. No edema noted. Watching TV. Denies wants or needs.
[2024-04-15 19:00] VITALS: BP 128/74
--- NOTE | 2024-04-16 05:59 | NUR ---
Rested well this shift. Up to BR PRN with SBA and walker. Remains on oxygen at 1.5 L/NC. AM medications taken whole without difficulty. Discharging back to to [facility] Maravilla this AM. Bed alarm on. Call light in reach.
--- NOTE | 2024-04-16 06:59 | NUR ---
Report to Lavonne KOHLER
[2024-04-16 07:00] VITALS: BP 131/83
--- NOTE | 2024-04-16 08:00 | NUR ---
PT. UP IN CHAIR, EATING BREAKFAST AT THIS TIME. PLANNING TO DISCHARGE BACK TO [facility] AT 0900. PT. STATES HE IS READY TO GO BACK. REMAINS ON O2 AT 1.5L. AM MEDS GIVEN. PT. DENIES ANY NEEDS OR CONCERNS.
--- NOTE | 2024-04-16 08:50 | NUR ---
NURSE FROM [facility] HERE TO COMMUNITY HEALTH DIRECTOR PT. REVIEWED DISCHARGE INSTRUCTIONS WITH PT. AND NURSE. BOTH DENY ANY QUESTIONS OR CONCERNS. PT. DISCHARGED PER W/C TO PRIVATE VEHICLE.
== END 2024-04-16 08:50 | disposition home or self-care (01) | DRG 812 ==
LOC: MED/SURG 10:31
PROVIDERS: Physician Assistant; ADMIT Physician Assistant
DX: D62 Acute posthemorrhagic anemia (principal); I10 Essential (primary) hypertension; I48.91 Unspecified atrial fibrillation; Z79.01 Long term (current) use of anticoagulants; I25.10 Atherosclerotic heart disease of native coronary artery without angina pectoris; Z95.1 Presence of aortocoronary bypass graft; E78.5 Hyperlipidemia, unspecified; Z79.02 Long term (current) use of antithrombotics/antiplatelets; Z79.82 Long term (current) use of aspirin
CPT/HCPCS: A9270; J1071